=== PATIENT | female | born 2000 | race African-American/Black ===

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

== ENCOUNTER 2024-01-21 00:01 | Emergency (ER) | payer MEDICAID ==
[~2024-01-21] VITALS: Ht 162.6 cm; Wt 81.0 kg
[2024-01-21 00:22] VITALS: O2SAT 100
[2024-01-21] MEDS: ONDANSETRON 4MG ODT PO STA (01:21)
[2024-01-21 01:30] VITALS: BP 115/73; PULSE 67; RESP 16; TEMP 98.9
[2024-01-21] MEDS: MAGNESIUM/ALUMINUM HYDROXIDE/SIMETHICONE 30ML UDC PO STA (01:45)
[2024-01-21 02:18] LABS: CLARITY URINE CLOUDY (CLEAR); COLOR URINE YELLOW (YELLOW); GLUCOSE URINE NEGATIVE (NEGATIVE); KETONES URINE NEGATIVE (NEGATIVE); LEUKOCYTE ESTERASE URINE NEGATIVE (NEGATIVE); NITRITE URINE NEGATIVE (NEGATIVE); OCCULT BLOOD URINE NEGATIVE (NEGATIVE); PH URINE 5.5 (4.5-8.0); PROTEIN URINE 1+ (NEGATIVE); SPECIFIC GRAVITY URINE 1.037 (1.005-1.030)
[2024-01-21 02:38] LABS: BASOPHILS % 0.2 % (0.0-2.0); EOSINOPHILS % 0.3 % (0.0-5.0); HEMATOCRIT. 41.4 % (36.0-48.0); HEMOGLOBIN. 14.1 g/dL (12.0-16.0); LYMPHOCYTES % 7.1 % (20.0-50.0); MEAN CORPUSCULAR HEMOGLOBIN 31.4 pg (28.0-32.0); MEAN CORPUSCULAR VOLUME 92.6 fL (81.0-99.0); MEAN PLATELET VOLUME 8.6 fl (7.4-10.4); MONOCYTES % 7.6 % (2.0-8.0); NEUTROPHILS % 84.8 % (40.0-76.0); PLATELET 270 x1000/uL (130-400); RED BLOOD CELL COUNT 4.47 mill/uL (4.2-5.4); RED CELL DISTRIBUTION WIDTH 13.5 % (11.6-14.6); WHITE BLOOD COUNT 10.6 x1000/uL (4.5-11.0)
[2024-01-21 02:58] LABS: ALANINE AMINOTRANSFERASE 12 IU/L (10-49); ALBUMIN 4.6 g/dL (3.2-4.8); ASPARTATE AMINOTRANSFERASE 17 IU/L (<34); BILIRUBIN TOTAL 0.7 mg/dL (0.1-1.0); CALCIUM 8.7 mg/dL (8.7-10.4); CARBON DIOXIDE 25 mEq/L (21-32); CHLORIDE 106 mEq/L (98-107); CREATININE 0.7 mg/dL (0.6-1.0); GLUCOSE 95 mg/dL (70-105); POTASSIUM 3.7 mEq/L (3.5-5.1); PROTEIN TOTAL 7.6 g/dL (6.0-8.3); SODIUM 138 mEq/L (136-145); UREA NITROGEN BLOOD 14 mg/dL (9-23)
[2024-01-21 03:16] LABS: HCG SCREEN NEGATIVE
[2024-01-21 04:00] LABS: BACTERIA URINE 1+; MUCUS URINE 1+ /lpf (< = 2+); RBC URINE NONE SEEN /hpf (0-2); SQUAMOUS EPITHELIAL CELL URINE 1+ /lpf (RARE/1+)
== END 2024-01-21 03:08 | disposition left against medical advice (07) ==
LOC: ER 00:01
DX: R10.13 Epigastric pain (principal)
CPT/HCPCS: 99284; 74176; 80053; 81003; 81025; 84703; 83690; 85025; 36415; Q0162

== ENCOUNTER 2025-07-03 00:28 | Emergency (ER) | payer MEDICAID ==
[~2025-07-03] VITALS: Ht 162.6 cm; Wt 107.0 kg
[2025-07-03 01:15] VITALS: O2SAT 99
[2025-07-03 01:19] LABS: BASOPHILS % 1.2 % (0.0-2.0); EOSINOPHILS % 1.6 % (0.0-5.0); HEMATOCRIT. 32.9 % (36.0-48.0); HEMOGLOBIN. 10.8 g/dL (12.0-16.0); LYMPHOCYTES % 17.8 % (20.0-50.0); MEAN PLATELET VOLUME 8.3 fl (7.4-10.4); MONOCYTES % 10.3 % (2.0-8.0); NEUTROPHILS % 69.1 % (40.0-76.0); PLATELET 281 x1000/uL (130-400); RED BLOOD CELL COUNT 3.57 mill/uL (4.2-5.4); RED CELL DISTRIBUTION WIDTH 13.2 % (11.6-14.6)
[2025-07-03 01:33] LABS: CREATININE 0.7 mg/dL (0.6-1.0)
[2025-07-03 01:34] LABS: UREA NITROGEN BLOOD 9 mg/dL (9-23)
[2025-07-03 01:35] LABS: ASPARTATE AMINOTRANSFERASE 15 IU/L (<34)
[2025-07-03 01:36] LABS: BILIRUBIN DIRECT < 0.1 mg/dL (<=3.0); BILIRUBIN TOTAL 0.3 mg/dL (0.1-1.0); PROTEIN TOTAL 6.9 g/dL (6.0-8.3)
[2025-07-03 01:38] LABS: INR 0.9
[2025-07-03 02:05] LABS: ETHANOL BLOOD < 10 mg/dL (<10)
[2025-07-03 02:19] LABS: HCG SCREEN POSITIVE
[2025-07-03 02:45] LABS: B-HCG QUANTITATIVE 4548 mIU/mL (<6)
[2025-07-03 02:50] VITALS: BP 137/62; PULSE 90; RESP 15; TEMP 37; O2SAT 99
[2025-07-03] MEDS: ACETAMINOPHEN 325MG TABLET PO ONE (02:50)
[2025-07-03 02:59] LABS: CLARITY URINE CLEAR (CLEAR); COLOR URINE YELLOW (YELLOW); GLUCOSE URINE NEGATIVE (NEGATIVE); KETONES URINE NEGATIVE (NEGATIVE); LEUKOCYTE ESTERASE URINE 1+ (NEGATIVE); NITRITE URINE NEGATIVE (NEGATIVE); OCCULT BLOOD URINE NEGATIVE (NEGATIVE); PH URINE 6.5 (4.5-8.0); PROTEIN URINE NEGATIVE (NEGATIVE); SPECIFIC GRAVITY URINE 1.019 (1.005-1.030); UROBILINOGEN URINE 0.2 E.U./dL (0.2-1.0)
[2025-07-03 03:08] LABS: *AMPHETAMINES SCREEN URINE NEGATIVE (NEGATIVE)
[2025-07-03 03:09] LABS: *BARBITURATES SCREEN URINE NEGATIVE (NEGATIVE); *BENZODIAZEPINES SCREEN URINE NEGATIVE (NEGATIVE); *COCAINE SCREEN URINE NEGATIVE (NEGATIVE); CANNABINOID URINE SCREEN NEGATIVE (NEGATIVE); ECSTASY MDMA SCREEN URINE NEGATIVE (NEGATIVE); METHADONE URINE SCREEN NEGATIVE (NEGATIVE); OPIATES URINE SCREEN NEGATIVE (NEGATIVE); PHENCYCLIDINE URINE SCREEN NEGATIVE (NEGATIVE)
[2025-07-03 05:06] LABS: SQUAMOUS EPITHELIAL CELL URINE 1+ /lpf (RARE/1+)
[2025-07-03 05:08] LABS: WBC URINE 0-2 /hpf (0-2)
[2025-07-03 05:09] LABS: RBC URINE 0-2 /hpf (0-2)
[2025-07-03 05:10] LABS: BACTERIA URINE 1+
[2025-07-05 04:12] LABS: HSV TYPE 2 SPECIFIC AB IGG Reactive (Non Reactive)
== END 2025-07-03 03:20 | disposition short-term general hospital (02) ==
LOC: ER 00:28
DX: O26.893 Other specified pregnancy related conditions, third trimester (principal); R10.2 Pelvic and perineal pain; Z3A.30 30 weeks gestation of pregnancy; Z79.899 Other long term (current) drug therapy; Z98.890 Other specified postprocedural states
CPT/HCPCS: 36415; 76805; 80048; 80076; 80305; 80320; 81003; 83735; 84702; 84703; 85025; 86592; 86695; 86696; 86850; 86900; 87340; 99284; G0480